=== PATIENT | female | born 1945 | race Caucasian/White ===

== ENCOUNTER 2023-11-24 11:38 | Emergency (ER) | payer OTHER, BC ==
[2023-11-24 11:50] VITALS: BP 146/70; PULSE 65; RESP 16; TEMP 97.5; BMI 23.8
== END 2023-11-24 13:29 | disposition home or self-care (01) ==
LOC: JERFT 11:38
DX: S90.31XA Contusion of right foot, initial encounter (principal); W20.8XXA Other cause of strike by thrown, projected or falling object, initial encounter
CPT/HCPCS: 73630-TC-RT-FY; 99283-25

== ENCOUNTER 2024-05-17 15:20 | Emergency (ER) | payer OTHER, BC ==
[2024-05-17 15:27] VITALS: BMI 22.3
[2024-05-17 17:48] LABS: BASO % 0.4 % (0-2.0); EOS % 0.7 % (0-4.5); HEMATOCRIT 39.1 % (32.4-45.2); LYMPH % 11.3 % (8-40); MCH 34.4 pg (25.7-33.7); MCHC 33.3 g/dl (32.0-36.0); MEAN CELL VOLUME 103.4 fl (80-96); MEAN PLT VOLUME 8.6 fl (7.5-11.1); NEUT % 76.6 % (42.8-82.8); RBC 3.78 M/mm3 (3.60-5.2); RDW 14.8 % (11.6-15.6); WHITE BLOOD COUNT 20.4 K/mm3 (4.0-10.0)
[2024-05-17 17:52] LABS: PLATELET COUNT 35 10^3/uL (134-434)
[2024-05-17 17:53] LABS: POTASSIUM 4.1 mmol/L (3.5-5.1)
[2024-05-17 17:55] LABS: CALCIUM 9.3 mg/dL (8.5-10.1)
[2024-05-17 17:56] LABS: ALBUMIN 4.5 g/dl (3.4-5.0); BLOOD UREA NITROGEN 18.4 mg/dL (7-18); INR 1.12 (0.83-1.09); PROTHROMBIN TIME (PATIENT) 12.6 SEC (9.7-13.0)
[2024-05-17 17:59] LABS: ACTIVATED PTT 32.6 SECONDS (25.2-36.5); CREATININE 0.7 mg/dL (0.55-1.3)
[2024-05-17 18:00] LABS: TOT PROT 8.3 g/dl (6.4-8.2)
[2024-05-17 18:20] LABS: ANISOCYTOSIS 1+; MACROCYTOSIS 1+
[2024-05-18 09:43] VITALS: BP 159/84; PULSE 78; RESP 16; TEMP 99.1
== END 2024-05-18 09:30 | disposition short-term general hospital (02) ==
LOC: JER 15:20
DX: S80.11XA Contusion of right lower leg, initial encounter (principal); S80.12XA Contusion of left lower leg, initial encounter; D69.6 Thrombocytopenia, unspecified; R53.83 Other fatigue; X58.XXXA Exposure to other specified factors, initial encounter; Z20.822 Contact with and (suspected) exposure to COVID-19
CPT/HCPCS: 36415; 80053; 83615; 85025; 85384; 85610; 85730; 86850; 86900; 86901; 87635; 99285-25